=== PATIENT | female | born 1975 | race Caucasian/White ===

== ENCOUNTER 2018-04-13 16:35 | Emergency (ER) | payer OTHER ==
[2018-04-13 16:58] VITALS: BMI 43.3
[2018-04-13] MEDS ORDERED: ONDANSETRON 4 MG/2 ML VIAL IVPUSH ONE (16:59)
[2018-04-13] MEDS ORDERED: SODIUM CHLORIDE 1,000 ML IV STA (16:59)
--- NOTE | 2018-04-13 16:59 | PDOC ---
Rapid Medical Evaluation Medical Evaluation: Allergies Allergy/AdvReac Type Severity Reaction Status Date / Time No Known Allergies Allergy Verified 11/16/15 21:19 04/13/18 16:55 The patient complains of: nausea and unable to tolerate recommended diet since 12 midnight today, s/p gastric sleeve 04/[address] bell at [facility], seen by md yesterday On brief exam: vss, bs + x 4 The patient ordered for: cbc, comp, mag, iv, ivf, zofran The patient to proceed to the ED <Paula Holbrook - Last Filed: 04/13/18 16:55> Medical Evaluation: Allergies Allergy/AdvReac Type Severity Reaction Status Date / Time No Known Allergies Allergy Verified 04/13/18 16:58 Vital Signs Temp Pulse Resp BP Pulse Ox 98.2 F 64 16 148/67 100 04/13/18 16:55 04/13/18 16:55 04/13/18 16:55 04/13/18 16:55 04/13/18 16:55 <Kimberly Garner - Last Filed: 04/13/18 18:16> Time Seen by Provider: 04/13/18 16:55 Discharge Disposition <Paula Holbrook - Last Filed: 04/13/18 16:55> <Kimberly Garner - Last Filed: 04/13/18 18:16> - Diagnosis Nausea - Referrals Referrals: Sahara Cisneros MD [Primary Care Provider] -
--- NOTE | 2018-04-13 17:41 | PDOC ---
History of Present Illness - General Chief Complaint: Nausea Stated Complaint: DEHYDRATION Time Seen by Provider: 04/13/18 16:55 History Source: Patient - History of Present Illness Initial Comments: 04/13/18 18:13 The patient is a 43 year old female with a PMH of recent (April 07, 2018) gastric sleeve who presents with nausea. Patient states she woke up last night and was nauseous and dizzy (room spinning). Notes symptoms continued intermittently through today including today at her work when she felt tired and weak. States she drank some vitamin water "for the electrolytes" and she felt better. Last meal was a boiled egg earlier today. H/o daily multiple episodes of non-bloody watery diarrhea since her surgery. NKDA Surgical: Gastric Sleeve Social: denies toxic habits PMD: Dr. Cisneros Past History - Past Medical History Allergies/Adverse Reactions: Allergies Allergy/AdvReac Type Severity Reaction Status Date / Time No Known Allergies Allergy Verified 04/13/18 16:58 Home Medications: Ambulatory Orders Multivitamins [Tab-A-Vit -] 1 tab PO DAILY 04/13/18 - Immunization History Immunization Up to Date: Yes - Suicide/Smoking/Psychosocial Hx Smoking Status: Yes Smoking History: Never smoked Have you smoked in the past 12 months: No Number of Cigarettes Smoked Daily: 2 Information on smoking cessation initiated: No Hx Alcohol Use: No Drug/Substance Use Hx: No Substance Use Type: None Review of Systems - Review of Systems Constitutional: No: Chills, Fever Respiratory: No: Cough, Shortness of Breath Cardiac (ROS): No: Chest Pain, Lightheadedness, Palpitations, Syncope ABD/GI: Yes: Nausea. No: Constipated, Diarrhea, Vomiting : No: Burning, Dysuria *Physical Exam - Vital Signs Last Vital Signs Temp Pulse Resp BP Pulse Ox 98.2 F 64 16 148/67 100 04/13/18 16:55 04/13/18 16:55 04/13/18 16:55 04/13/18 16:55 04/13/18 16:55 - Physical Exam General Appearance: Yes: Nourished, Obese HEENT: positive: Normal Voice, Hearing Grossly Normal Neck: positive: Trachea midline, Supple Respiratory/Chest: positive: Lungs Clear, Normal Breath Sounds. negative: Labored Respiration, Rapid RR Cardiovascular: positive: S1, S2. negative: Edema Gastrointestinal/Abdominal: positive: Normal Bowel Sounds, Soft, Other ( multiple anterior abdominal surgical scars C/D/I). negative: Distended, Guarding, Rebound, Tenderness Musculoskeletal: negative: CVA Tenderness (R), CVA Tenderness (L) Extremity: positive: Normal Capillary Refill, Normal Inspection Integumentary: positive: Normal Color, Dry, Warm ED Treatment Course - LABORATORY CBC & Chemistry Diagram: 04/13/18 17:59 04/13/18 17:59 Medical Decision Making - Medical Decision Making 04/13/18 18:29 43 year old female presents with nausea and intermittent vertigo. H/o recent gastric bypass. No abdominal pain. VS unremarkable. Abdominal PE w/o concerning findings including no TTP, guarding/rebound, C/D/I surgical scar. Will obtain basic labs, administer IV fluids, Zofran. Reassess. 04/13/18 18:52 No electrolyte abnormalities. Patient symptomatically improved. Will reassess. 04/13/18 19:10 No leukocytosis Urine shows 2+ ketones likely 2/2 to recent limited PO intake 04/13/18 19:15 Re-evaluated patient @ bedside. Symptomatically improved. Will discharge home with return precautions and instruction to f/u with her surgeon and her PMD. *DC/Admit/Observation/Transfer Diagnosis at time of Disposition: Nausea - Discharge Dispostion Disposition: HOME Condition at time of disposition: Good - Referrals Referrals: Sahara Cisneros MD [Primary Care Provider] - - Patient Instructions Printed Discharge Instructions: DI for Dehydration -- Adult Additional Instructions: Please follow up with your surgeon and primary care doctor in the next 48 hours. Return to the Emergency Department for any new/worsening/concerning symptoms. - Post Discharge Activity
[2018-04-13 18:02] LABS: EOS % 3.3 % (0-4.5); HEMATOCRIT 41.8 % (32.4-45.2); HEMOGLOBIN 13.7 GM/dL (10.7-15.3); LYMPH % 26.8 % (8-40); MCH 26.9 pg (25.7-33.7); MCHC 32.9 g/dl (32.0-36.0); MEAN CELL VOLUME 81.9 fl (80-96); MEAN PLT VOLUME 9.3 fl (7.5-11.1); MONO % 6.3 % (3.8-10.2); NEUT % 62.6 % (42.8-82.8); PLATELET COUNT 398 K/MM3 (134-434); RDW 14.6 % (11.6-15.6); WHITE BLOOD COUNT 8.9 K/mm3 (4.0-10.0)
--- NOTE | 2018-04-13 18:04 | PDOC ---
Attending Attestation - Resident Resident Name: Kimberly Garner - ED Attending Attestation I have performed the following: I have examined & evaluated the patient, The case was reviewed & discussed with the resident, I agree w/resident's findings & plan, Exceptions are as noted - HPI HPI: 04/13/18 19:13 Ms Hyde Is a 43-year-old female presented to emergency department with a complaint of nausea as well as diarrhea. She is 7 days status post sleeve gastrectomy. Her last by mouth intake was 9 days ago. Patient states that she has been on liquids up until yesterday when she started taking in solids (upon the approval by her surgeon) disease today she was able to eat eggs. She attempted to eat mashed her lochia, and when it was unable to do so. She developed diarrhea which was consistent. No fevers, no chills. No abdominal pain at all - Physicial Exam PE: 04/13/18 19:15 She is well appearing RRR CTA No abd tenderness or distention - Medical Decision Making 04/13/18 19:15 Laboratory Tests 04/13/18 04/13/18 04/13/18 17:50 17:50 17:59 WBC 8.9 Hgb 13.7 Hct 41.8 Plt Count 398 BUN Creatinine Urine Blood Negative Urine Nitrite Negative Ur Leukocyte Esterase 1+ H Urine WBC (Auto) 5 Urine RBC (Auto) <1 Urine HCG, Qual Negative 04/13/18 17:59 WBC Hgb Hct Plt Count BUN 7 Creatinine 0.4 L Urine Blood Urine Nitrite Ur Leukocyte Esterase Urine WBC (Auto) Urine RBC (Auto) Urine HCG, Qual D/c to home Follow up with surgeon 04/13/18 19:15
[2018-04-13] MEDS ORDERED: ONDANSETRON 4 MG/2 ML VIAL ONE (18:10)
[2018-04-13 18:46] LABS: ALBUMIN 3.6 g/dl (3.4-5.0); ALK PHOS 95 U/L (45-117); ANION GAP 11 MMOL/L (8-16); BILIRUBIN,TOTAL 0.5 mg/dL (0.2-1); BLOOD UREA NITROGEN 7 mg/dL (7-18); CALCIUM 9.5 mg/dL (8.5-10.1); CHLORIDE 103 mmol/L (98-107); CO2 23 mmol/L (21-32); CREATININE 0.4 mg/dL (0.55-1.3); GLUCOSE,RANDOM 81 mg/dL (74-106); LIPASE 150 U/L (73-393); POTASSIUM 3.6 mmol/L (3.5-5.1); SGOT/AST 34 U/L (15-37); SGPT/ALT 59 U/L (13-61); SODIUM 136 mmol/L (136-145); TOT PROT 7.6 g/dl (6.4-8.2)
[2018-04-13 19:00] LABS: URINE APPEARANCE CLEAR; URINE BILIRUBIN NEGATIVE (<2.0 mg/dL); URINE COLOR LTYELLOW; URINE GLUCOSE (UA) NEGATIVE (NEGATIVE); URINE KETONE 2+ (NEGATIVE); URINE LEUK ESTERASE 1+ (NEGATIVE); URINE NITRITE NEGATIVE (NEGATIVE); URINE PROTEIN NEGATIVE (NEGATIVE); URINE UROBILINOGEN NEGATIVE mg/dL (0.2-1.0)
[2018-04-13 19:07] LABS: EPI CELLS RARE /HPF (FEW); URINE MUCUS RARE
[2018-04-13 19:25] VITALS: BP 107/68; PULSE 67; TEMP 97.6
== END 2018-04-13 20:00 | disposition home or self-care (01) ==
LOC: JER 16:35
PROC: 3E033GC Introduction of Other Therapeutic Substance into Peripheral Vein, Percutaneous Approach (ICD-10-PCS; principal; 2018-04-13)
PROC: 3E0337Z Introduction of Electrolytic and Water Balance Substance into Peripheral Vein, Percutaneous Approach (ICD-10-PCS; 2018-04-13)
DX: R11.0 Nausea (principal); Z98.84 Bariatric surgery status
CPT/HCPCS: 36415; 80053; 81003; 81015; 83690; 83735; 84703; 85025; 99284-25; J7030

== ENCOUNTER 2018-04-21 19:39 | Observation (INO) | payer OTHER ==
--- NOTE | 2018-04-21 19:54 | PDOC ---
History of Present Illness - History of Present Illness Initial Comments: 04/21/18 20:49 The patient is a 43 year old female, with a significant past medical history of recent gastric sleeve (04/07/18), who presents to the emergency department with, 9 hours of intermittent left arm numbness with associated left shoulder and back pain. She describes the numbness as a heaviness with associated finger numbness. The patient endorses a headache earlier this morning. She denies any motor and sensory deficits. She denies any extremity tenderness or swelling. She denies recent fevers, chills, headache or dizziness. She denies recent nausea, vomit, diarrhea or constipation. She denies recent dysuria, frequency, urgency or hematuria. She denies recent chest pain or shortness of breath. PAST MEDICAL HISTORY: no significant history PAST SURGICAL HISTORY: no significant history FAMILY HISTORY: no pertinent history SOCIAL HISTORY: Pt lives with family and is employed. MEDICATIONS: reviewed ALLERGIES: As per nursing notes ROS: General: No fevers or chills, no weakness, no weight loss HEENT: No change in vision. No sore throat,. No ear pain CardioVascular: No chest pain or shortness of breath Respiratory:No cough, or wheezing. Gastrointestinal: no nausea, vomiting, diarrhea or constipation, No rectal bleeding Genitourinary: No dysuria, hematuria, or frequency +Musculoskeletal: Shoulder and back pain. No joint or swelling Neurologic: Left arm numbness. No headache, vertigo, dizziness or loss of consciousness Psychiatric: nor depression Skin: No rashes or easy bruising Endocrine: no increased thirst or abnormal weight change Allergic: no skin or latex allergy All other systems reviewed and normal Physical Exam: General: Well-nourished well-developed individual, no acute distress HEENT: Throat: Normal, tonsils normal, no erythema or exudate Neck: Supple, no meningeal signs, no lymphadenopathy Eyes::Pupils equal reactive and round, extraocular motion intact Chest: Nontender to palpation Cardiac: S1-S2 normal, regular rate and rhythm, no murmurs rubs or gallops Respiratory: Lungs clear to auscultation bilateral Abdomen: Soft, nondistended, normal bowel sounds, nontender to palpation diffusely Extremities: Warm, dry, no cyanosis, clubbing, or edema Skin: No rashes +Neuro: See NIH stroke scale. Psych: Normal mood and affect <Aston Darling - Last Filed: 04/21/18 20:49> - General History Source: Patient Exam Limitations: No Limitations - History of Present Illness Initial Comments: 04/21/18 22:04 A portion of this note was documented by scribe services under my direction. I have reviewed the details of the note, within reason, and agree with the documentation. The case summary and management plan written by me. Assessment and plan: This is a 43-year-old female who comes in complaining of left arm weakness and numbness times proximally 9 hours prior to her arrival. Patient denies history of similar symptoms in the past. Patient said symptoms began to resolve but then again worsened so she came in for evaluation. Patient's only significant history is obesity and recently had a gastric sleeve procedure done approximately 2 weeks ago. Patient has a family history of cardiac disease however denies any history of hypertension high cholesterol diabetes or any other risk factors. Patient denied any chest pain.. A workup was obtained including head CT, EKG, labs Patient's NIH stroke scale was 1 for some decreased sensation. 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 Patient's EKG was normal sinus rhythm at a rate of 69, normal intervals, no acute ST-T wave changes Patient's head CT was negative for any acute pathology <Celina Pemberton I - Last Filed: 04/21/18 23:53> - General Chief Complaint: Head/Neck problem Stated Complaint: NUMBNESS LT ARM Time Seen by Provider: 04/21/18 19:54 Past History <Aston Darling - Last Filed: 04/21/18 20:49> - Past Medical History COPD: No - Surgical History GI Surgery: Yes (Gastric sleeve) - Immunization History Immunization Up to Date: Yes - Suicide/Smoking/Psychosocial Hx Smoking Status: Yes Smoking History: Former smoker Have you smoked in the past 12 months: Yes Number of Cigarettes Smoked Daily: 2 If you are a former smoker, when did you quit?: JANUARY Information on smoking cessation initiated: No Hx Alcohol Use: No Drug/Substance Use Hx: No Substance Use Type: None <Celina Pemberton I - Last Filed: 04/21/18 23:53> - Past Medical History Allergies/Adverse Reactions: Allergies Allergy/AdvReac Type Severity Reaction Status Date / Time No Known Allergies Allergy Verified 04/13/18 16:58 Home Medications: Ambulatory Orders Multivitamins [Tab-A-Vit -] 1 tab PO DAILY 04/13/18 *Physical Exam - Vital Signs Last Vital Signs Temp Pulse Resp BP Pulse Ox 98.1 F 74 16 113/71 100 04/21/18 19:41 04/21/18 19:41 04/21/18 19:41 04/21/18 19:41 04/21/18 19:41 <Aston Darling - Last Filed: 04/21/18 20:49> - Vital Signs Last Vital Signs Temp Pulse Resp BP Pulse Ox 98.1 F 74 16 113/71 100 04/21/18 19:41 04/21/18 19:41 04/21/18 19:41 04/21/18 19:41 04/21/18 19:41 <Celina Pemberton I - Last Filed: 04/21/18 23:53> Heart Score/ECG Review - History History: Slightly suspicious - Electrocardiogram EKG: Normal - Age Age: </= 45 - Risk Factors Risk Factors Heart Score: Yes Hx Obesity Based on the list above the patient has:: 1-2 risk factors - Troponin Troponin: </= normal limit - Score Heart Score - Total: 1 <Celina Pemberton I - Last Filed: 04/21/18 23:53> ED Treatment Course - LABORATORY CBC & Chemistry Diagram: 04/21/18 21:00 04/21/18 21:00 <Celina Pemberton I - Last Filed: 04/21/18 23:53> *DC/Admit/Observation/Transfer - Attestations Scribe Attestion: 04/21/18 20:49 Documentation prepared by Aston Darling, acting as medical education coordinator for Celina Pemberton MD. <Aston Darling - Last Filed: 04/21/18 20:49> - Discharge Dispostion Decision to Admit order: Yes <Celina Pemberton I - Last Filed: 04/21/18 23:53> Diagnosis at time of Disposition: TIA (transient ischemic attack) - Discharge Dispostion Condition at time of disposition: Stable - Referrals Referrals: Sahara Cisneros MD [Primary Care Provider] - - Patient Instructions - Post Discharge Activity
[2018-04-21] MEDS: SODIUM CHLORIDE 1,000 ML IV SCH (21:10)
[2018-04-21 21:11] LABS: HCG,QUALITATIVE URINE Negative
[2018-04-21 21:14] LABS: PH,URINE 6.5 (4.5-8); URINE APPEARANCE Clear; URINE BILIRUBIN 2+ (NEGATIVE); URINE COLOR Yellow; URINE GLUCOSE (UA) Negative (NEGATIVE); URINE KETONE 4+ (NEGATIVE); URINE LEUK ESTERASE TRACE (NEGATIVE); URINE NITRITE Negative (NEGATIVE); URINE PROTEIN 1+ (NEGATIVE)
[2018-04-21 21:16] LABS: EOS % 4.7 % (0-4.5); HEMATOCRIT 42.1 % (32.4-45.2); HEMOGLOBIN 13.9 GM/dl (10.7-15.3); LYMPH % 33.2 % (8-40); MCH 27.4 pg (25.7-33.7); MCHC 33.1 g/dl (32.0-36.0); MEAN CELL VOLUME 82.7 fl (80-96); MEAN PLT VOLUME 9.6 fl (7.5-11.1); MONO % 7.4 % (3.8-10.2); NEUT % 53.7 % (42.8-82.8); PLATELET COUNT 410 K/MM3 (134-434); RBC 5.09 M/mm3 (3.60-5.2); WHITE BLOOD COUNT 8.3 K/mm3 (4.0-10.8)
[2018-04-21 21:20] LABS: URINE RBC 0-2 /hpf (0-3)
[2018-04-21 21:21] LABS: CALCIUM OXALATE CRYSTALS FEW /hpf (NONE SEEN); EPI CELLS FEW /HPF; URINE BACTERIA 2+ /hpf (NEGATIVE)
[2018-04-21 21:25] LABS: ALBUMIN 3.7 g/dl (3.5-5.0); ALK PHOS 87 U/L (32-92); ANION GAP 11 MMOL/L (8-16); BILIRUBIN,TOTAL 0.8 mg/dl (0.2-1.0); BLOOD UREA NITROGEN 9 mg/dl (7-18); CHLORIDE 100 mmol/L (98-107); CO2 27 mmol/L (22-28); GLUCOSE,RANDOM 99 mg/dl (74-106); POTASSIUM 3.5 mmol/L (3.5-5.1); SGOT/AST 31 U/L (10-42); SGPT/ALT 50 U/L (10-40); SODIUM 138 mmol/L (136-145)
[2018-04-21 21:26] LABS: CREATININE < 0.6 mg/dl (0.6-1.3)
--- NOTE | 2018-04-21 21:27 | PDOC ---
NIH Stroke Scale - Last Known Well Date/Time & Onset Date Last Known Well: 04/21/18 Time Last Known Well: 12:00 - Initial Evaluation Level of consciousness: Alert Ask patient the month and their age: Answers both correctly Ask patient to open & close eyes; make fist and let go: Obeys both correctly Best gaze (horizontal eye movement): Normal Visual field testing: No visual field loss Facial paresis (Show teeth/raise eyebrows/close eyes tight): Normal symmetrical movement Motor Function: Left Arm: Normal Motor Function: Right Arm: Normal (extends arm 90 (or 45) degrees for 10 seconds without drift Motor Function: Left Leg: Normal (extends leg 30 degrees for 5 seconds without drift) Motor Function: Right Leg: Normal (extends leg 30 degrees for 5 seconds without drift) Limb Ataxia: No ataxia Sensory(Use pinprick test arms,legs,trunk,face/side to side): Mild to moderate decrease in sensation Best language (Describe picture, name items, read sentences): No Aphasia Dysarthria (read several words): Normal articulation Extinction and Inattention: No abnormality - Total Score NIH Stroke Scale Score: 1
[2018-04-21] MEDS ORDERED: NITROFURANTOIN MACROCRYSTAL 50 MG CAPSULE (FP) PO SCH (22:15)
[2018-04-21] MEDS ORDERED: NITROFURANTOIN MACROCRYSTAL 50 MG CAPSULE (FP) ONE (22:23)
[2018-04-22 03:38] VITALS: BMI 43.0
--- NOTE | 2018-04-22 06:20 | PN ---
Teaching Attending Note Name of Resident: Leticia Johnson ATTENDING PHYSICIAN STATEMENT I saw and evaluated the patient. Chart, data, imaging reviewed. I reviewed the resident's note and discussed the case with the resident. I agree with the resident's findings and plan as documented. SUBJECTIVE: 43 year old female transferred to [facility] from [facility], with a significant past medical history of recent gastric sleeve (04/07/18), Sjogren's syndrome who complained of intermittent left upper extremity numbness x1 day. She also mentioned that numbness was located in b/l fingers while in ambulance. No clear causative factors. Denied any trauma to arm. Denied any pain. No other weakness or numbness reported. OBJECTIVE: Last Vital Signs Temp Pulse Resp BP Pulse Ox 97.6 F 65 20 115/74 98 04/22/18 02:00 04/22/18 02:00 04/22/18 02:00 04/22/18 02:00 04/22/18 02:00 general- comfortable, obese heent- atraumatic, NC neck supple cv -s1+s2+rrr chest clear abdomen -obese, nt ext- good hand lead consultant b/l, upper ext sensation grossly intact Abnormal Lab Results 04/21/18 04/21/18 04/21/18 21:00 21:00 21:00 Eosinophils % 4.7 H Creatinine < 0.6 L ALT 50 H Urine Protein 1+ H Urine Ketones 4+ H Urine Bilirubin 2+ H Ur Leukocyte Esterase Trace H head CT - no acute intracranial insults ASSESSMENT AND PLAN: 43yo woman with LUE numbness, b/l finger numbness. Could be TIA. May also be Raynauld phenomenon, especially given Hx of baseline autoimmune disorders. -tele/obs -neuro evaluation -ASA -statin -NPO -TTE -carotid duplex u/s -speech and swallow eval -neuro checks q4hrs -bedrest -check mg, supplement prn -supplement K (was borderline low) -if recurrent distal finger numbness, consider trial of CCB -heparin sc for dvt ppx
[2018-04-22] MEDS ORDERED: ATORVASTATIN CA 40 MG TABLET (FP) PO ONE (06:45)
[2018-04-22] MEDS ORDERED: ASPIRIN 325 MG TABLET PO ONE (06:45)
[2018-04-22] MEDS ORDERED: POTASSIUM CHLORIDE TABS 20 MEQ TABLET.ER (FP) PO ONE (06:45)
[2018-04-22] MEDS: HEPARIN NA (PORCINE) 5,000 UNITS/ML 1ML VIAL SQ SCH ×3 (06:55→21:34)
[2018-04-22 07:10] LABS: BASO % 0.7 % (0-2.0); EOS % 5.2 % (0-4.5); HEMOGLOBIN 12.5 GM/dL (10.7-15.3); LYMPH % 33.9 % (8-40); MCH 26.7 pg (25.7-33.7); MCHC 32.9 g/dl (32.0-36.0); MEAN CELL VOLUME 81.3 fl (80-96); MEAN PLT VOLUME 8.9 fl (7.5-11.1); MONO % 8.4 % (3.8-10.2); NEUT % 51.8 % (42.8-82.8); PLATELET COUNT 323 K/MM3 (134-434); RBC 4.68 M/mm3 (3.60-5.2); RDW 14.9 % (11.6-15.6); WHITE BLOOD COUNT 6.7 K/mm3 (4.0-10.0)
[2018-04-22 07:26] LABS: INR 1.08 (0.83-1.09); PROTHROMBIN TIME (PATIENT) 12.8 SEC (9.7-13.0)
[2018-04-22 07:29] LABS: ACTIVATED PTT 33.3 SECONDS (25.2-36.5)
[2018-04-22 07:54] LABS: ANION GAP 8 MMOL/L (8-16); BLOOD UREA NITROGEN 8 mg/dL (7-18); CALCIUM 8.6 mg/dL (8.5-10.1); CHLORIDE 103 mmol/L (98-107); CHOLESTEROL 181 mg/dL (50-200); CO2 29 mmol/L (21-32); CREATININE 0.4 mg/dL (0.55-1.3); GLUCOSE,RANDOM 94 mg/dL (74-106); HDL CHOLESTEROL 38 mg/dL (40-60); MAGNESIUM 2.2 mg/dL (1.8-2.4); PHOSPHOROUS 3.5 mg/dL (2.5-4.9); POTASSIUM 3.6 mmol/L (3.5-5.1); SODIUM 140 mmol/L (136-145); TRIGLYCERIDES 147 mg/dL (0-150)
--- NOTE | 2018-04-22 08:11 | HP ---
CHIEF COMPLAINT: Left arm numbness, weakness PCP: Dr Cisneros HISTORY OF PRESENT ILLNESS: Pt is a 43 y/o lady with a significant past medical history of Sjogrem's disease presented to [facility] c/o numbness, tingling, and cramping like pain in her left upper extremity which commenced around noon yesterday (). 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 PT states her entire left arm became numb and weak. These symptoms commenced until approximately 2:45 pm. Pt states her symtms returned again at 6 pm and this is when she decided to seek medical help. Pt further endorses that while she was in ambulance en route to [facility] from [place], her right arm began to cramp and turn blue. Pt states this has never happened to her before. Denies chest pain, shortness of breath, lightheadedness, nausea, vomiting, changes in vision, LOC, or facial droop. ER course was notable for: (1) CT Head w/o contrast--> No acute intracranial pathology (2) EKG--> No ST-T wave changes, NL sinus rhythm rate of 69, (3) Troponin <0.03 Recent Travel: denies PAST MEDICAL HISTORY: Sjogren's PAST SURGICAL HISTORY: Gastric Sleeve, Tubal Ligation Social History: Smoking: Quit January 03 2018. Use to smoke 3 cigarettes Marifer per day. Alcohol: denies Drugs: occasional marijuana Family History: Dad-Stroke, [place]. Mom- CAD, Stents Allergies NKDA No Known Allergies Allergy (Verified 04/13/18 16:58) HOME MEDICATIONS: Home Medications Medication Instructions Recorded Multivitamins [Tab-A-Vit -] 1 tab PO DAILY 04/13/18 REVIEW OF SYSTEMS CONSTITUTIONAL: PRESENT:: , generalized weakness, malaise HEENT: Absent: rhinorrhea, nasal congestion, throat pain, throat swelling, difficulty swallowing, mouth swelling, ear pain, eye pain, visual changes CARDIOVASCULAR: Absent: chest pain, syncope, palpitations, irregular heart rate, lightheadedness , peripheral edema RESPIRATORY: Absent: cough, shortness of breath, dyspnea with exertion, orthopnea, wheezing, stridor, hemoptysis GASTROINTESTINAL: Absent: abdominal pain, abdominal distension, nausea, vomiting, diarrhea, constipation, melena, hematochezia GENITOURINARY: Absent: dysuria, frequency, urgency, hesitancy, hematuria, flank pain, genital pain MUSCULOSKELETAL: Absent: myalgia, arthralgia, joint swelling, back pain, neck pain SKIN: Absent: rash, itching, pallor HEMATOLOGIC/IMMUNOLOGIC: Absent: easy bleeding, easy bruising, lymphadenopathy, frequent infections ENDOCRINE: Absent: unexplained weight gain, unexplained weight loss, heat intolerance, cold intolerance NEUROLOGIC: PRESENT: headache, focal weakness or paresthesias, PSYCHIATRIC: Absent: anxiety, depression, suicidal or homicidal ideation, hallucinations. PHYSICAL EXAMINATION Vital Signs - 24 hr 04/21/18 04/22/18 04/22/18 19:41 02:00 06:00 Temperature 98.1 F 97.6 F 97.9 F Pulse Rate 74 65 54 L Respiratory 16 20 20 Rate Blood Pressure 113/71 115/74 104/67 O2 Sat by Pulse 100 98 Oximetry (%) GENERAL: AaoX3, NAD HEAD: NC/AT EYES: PERRLA, EOMI EARS, NOSE, THROAT: MMM, NO EXUDATES NECK: Supple, No JVD LUNGS: CTA B/L, No rales rhonchi or wheezes HEART: RRR, No MRG S1 S2 ABDOMEN: Obese. Laparoscopy incisions present s/p sleeve gastrectomy MUSCULOSKELETAL: FROM throughout UPPER EXTREMITIES: No CCE LOWER EXTREMITIES: No CCE NEUROLOGICAL: CN -12 intact SKIN: No rashes Laboratory Results - last 24 hr 04/21/18 04/21/18 04/21/18 21:00 21:00 21:00 WBC 8.3 RBC 5.09 Hgb 13.9 Hct 42.1 MCV 82.7 MCH 27.4 MCHC 33.1 RDW 14.0 Plt Count 410 MPV 9.6 Absolute Neuts (auto) 4.4 Neutrophils % 53.7 Lymphocytes % 33.2 Monocytes % 7.4 Eosinophils % 4.7 H Basophils % 1.0 Nucleated RBC % PT with INR INR PTT (Actin FS) Sodium 138 Potassium 3.5 Chloride 100 Carbon Dioxide 27 Anion Gap 11 BUN 9 Creatinine < 0.6 L Creat Clearance w eGFR > 60 Random Glucose 99 Calcium 9.0 Phosphorus Magnesium Total Bilirubin 0.8 AST 31 ALT 50 H Alkaline Phosphatase 87 Creatine Kinase Troponin I Total Protein 7.0 Albumin 3.7 Triglycerides Cholesterol Total LDL Cholesterol HDL Cholesterol Urine Color Yellow Urine Appearance Clear Urine pH 6.5 Ur Specific [place] >= 1.030 Urine Protein 1+ H Urine Glucose (UA) Negative Urine Ketones 4+ H Urine Blood Negative Urine Nitrite Negative Urine Bilirubin 2+ H Urine Urobilinogen 1.0 Ur Leukocyte Esterase Trace H Urine RBC 0-2 Urine WBC 5-10 Ur Epithelial Cells Few Calcium Oxalate Crystal Few Urine Bacteria 2+ Urine HCG, Qual Negative 04/21/18 04/21/18 04/22/18 21:00 21:00 06:48 WBC 6.7 RBC 4.68 Hgb 12.5 Hct 38.0 MCV 81.3 MCH 26.7 MCHC 32.9 RDW 14.9 Plt Count 323 MPV 8.9 Absolute Neuts (auto) 3.5 Neutrophils % 51.8 Lymphocytes % 33.9 D Monocytes % 8.4 Eosinophils % 5.2 H Basophils % 0.7 Nucleated RBC % 0 PT with INR INR PTT (Actin FS) Sodium Potassium Chloride Carbon Dioxide Anion Gap BUN Creatinine Creat Clearance w eGFR Random Glucose Calcium Phosphorus Magnesium Total Bilirubin AST ALT Alkaline Phosphatase Creatine Kinase 82 Troponin I < 0.03 Total Protein Albumin Triglycerides Cholesterol Total LDL Cholesterol HDL Cholesterol Urine Color Urine Appearance Urine pH Ur Specific [place] Urine Protein Urine Glucose (UA) Urine Ketones Urine Blood Urine Nitrite Urine Bilirubin Urine Urobilinogen Ur Leukocyte Esterase Urine RBC Urine WBC Ur Epithelial Cells Calcium Oxalate Crystal Urine Bacteria Urine HCG, Qual 04/22/18 04/22/18 04/22/18 06:48 06:48 06:48 WBC RBC Hgb Hct MCV MCH MCHC RDW Plt Count MPV Absolute Neuts (auto) Neutrophils % Lymphocytes % Monocytes % Eosinophils % Basophils % Nucleated RBC % PT with INR 12.80 INR 1.08 PTT (Actin FS) 33.3 Sodium 140 Potassium 3.6 Chloride 103 Carbon Dioxide 29 Anion Gap 8 BUN 8 Creatinine 0.4 L Creat Clearance w eGFR > 60 Random Glucose 94 Calcium 8.6 Phosphorus 3.5 Magnesium 2.2 Total Bilirubin AST ALT Alkaline Phosphatase Creatine Kinase Troponin I Total Protein Albumin Triglycerides 147 Cancelled Cholesterol 181 Cancelled Total LDL Cholesterol 123 H Cancelled HDL Cholesterol 38 L Cancelled Urine Color Urine Appearance Urine pH Ur Specific [place] Urine Protein Urine Glucose (UA) Urine Ketones Urine Blood Urine Nitrite Urine Bilirubin Urine Urobilinogen Ur Leukocyte Esterase Urine RBC Urine WBC Ur Epithelial Cells Calcium Oxalate Crystal Urine Bacteria Urine HCG, Qual ASSESSMENT/PLAN: Pt is a 43 y/o lady with a significant past medical history of Sjogrem's disease presented to [facility] c/o numbness, tingling, and cramping like pain in her left upper extremity which commenced around noon yesterday (). Numbness/weakness Upper Extremity 2/2 TIA? - CT Head w/o contrast--> No acute intracranial pathology -Carotid Doppler -Lipid Panel -Neuro checks Q2H -Statin -Aspirin -Fall Precautions -Tylenol PRN for pain -Neuro consult FEN NS@150cc/hr Monitor Electrolytes NPO DVT ppx: Hep SQ TID Dispo: Tele Obs Visit type - Emergency Visit Emergency Visit: Yes ED Registration Date: 04/22/18 Care time: The patient presented to the Emergency Department on the above date and was hospitalized for further evaluation of their emergent condition. - New Patient This patient is new to me today: Yes Date on this admission: 04/22/18 - Critical Care Critical Care patient: No
--- NOTE | 2018-04-22 09:13 | EKG ---
Test Reason : Blood Pressure : / mmHG Vent. Rate : 069 BPM Atrial Rate : 069 BPM P-R Int : 136 ms QRS Dur : 080 ms QT Int : 394 ms P-R-T Axes : 064 013 014 degrees QTc Int : 422 ms NORMAL SINUS RHYTHM NORMAL ECG WHEN COMPARED WITH ECG OF 09-MAR-2008 09:35, NO SIGNIFICANT CHANGE WAS FOUND Confirmed by VIV RICE MD ([id number]) on 04/22/2018 9:13:39 AM Referred By: MARI Confirmed By:VIV RICE MD
--- NOTE | 2018-04-22 15:31 | CON.NEURO ---
Consult Consult Specialty:: Crow Referred by:: Hospital Resident - History of Present Illness History of Present Illness: 43-year-old right-handed female patient well known to me from the office I treated the patient for years with migraine headache Patient presented to the hospital 2 days ago with a chief complaint of left arm spasm. Patient denies any loss of consciousness no seizure-like activity patient was evaluated in the emergency room and she felt the spread of her symptoms so the patient was transferred to [facility] in the ambulance patient had shaking of the right arm. Again patient denies any chest pain palpitations blurry vision double vision tongue biting and urinary incontinence. Patient never had a history of seizure. Patient carries only one history of mild obesity and history of Sjogren's syndrome she's not on any immune modulation she's not on steroids patient was never been treated by a haul truck driver. Patient denies any recent travel patient claims that the headache is better. 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 Patient admits to weight gain recently. No recent travel no fever no whiplash injury. - History Source History Provided By: Patient Limitations to Obtaining History: No Limitations - Past Medical History ...: No - Alcohol/Substance Use Hx Alcohol Use: No - Smoking History Smoking history: Former smoker Have you smoked in the past 12 months: Yes Aproximately how many cigarettes per day: 1 If you are a former smoker, when did you quit?: 01/2018 Home Medications - Allergies Allergies/Adverse Reactions: Allergies Allergy/AdvReac Type Severity Reaction Status Date / Time No Known Allergies Allergy Verified 04/13/18 16:58 - Home Medications Home Medications: Ambulatory Orders Multivitamins [Tab-A-Vit -] 1 tab PO DAILY 04/13/18 Family Disease History - Family Disease History Family Disease History: Other: Sister (seizure) Review of Systems - Review of Systems Musculoskeletal: reports: Back Pain, Joint Swelling Neurological: reports: Headache, Incoordination Physical Exam-Neuro Vital Signs: Vital Signs Temperature 97.7 F 04/22/18 14:02 Pulse Rate 68 04/22/18 14:02 Respiratory Rate 16 04/22/18 14:02 Blood Pressure 137/76 04/22/18 14:02 O2 Sat by Pulse Oximetry (%) 98 04/22/18 02:00 Constitutional: Yes: Well Nourished Neck: Yes: WNL Labs: CBC, BMP 04/22/18 06:48 04/22/18 06:48 INR, PTT INR 1.08 (0.83-1.09) 04/22/18 06:48 - Neuro Exam Level Of Consciousness: Yes: Oriented to Person, Oriented to Place, Oriented to Time Eyes: Yes: PERRLA Speech: WNL Dominant Hand: Right Cranial Nerves II-XII Intact: Yes Gag: Present DTR's: 1+ Left Bicep, 1+ Right Bicep, 1+ Left Brachioradialis, 1+ Right Brachioradialis Response to light touch: Normal Response to pain prick: Normal Response to temperature: Normal Response to vibration: Normal Motor Strength: 3/5: Left Arm, Right Arm, Left Leg, Right Leg Gait: Deferred Imaging - Results Cat Scan: Image Reviewed Problem List - Problems (1) Arm dysfunction Assessment/Plan: this is not a TIA This is not an ischemic event Results of the CAT scan noted questionable prior trauma to the head that resulted in calcification this is not the reason for the arm symptoms Please do not order MRI of the brain as an inpatient. Neurologically patient stable Neurological differential diagnoses #1 cervical radiculopathy C6-C7 #2 Sjogren syndrome #3 myalgia #4 mild obesity Plan #1 weight loss was advised. 2. Neurontin 100 mg by mouth daily at bedtime. 3. Obtain the results of the Holter monitor. 4. Patient neurologically could be transferred to a regular floor. 4. Suggest rheumatology evaluation as an outpatient. 5. MRI cervical spine with no contrast. 6. Physical therapy. 7. Obtain deep mercury and iron level. Case was discussed with the patient Thank you very much for the kind referral. Code(s): R29.898 - [facility] SYMPTOMS AND SIGNS INVOLVING THE MUSCULOSKELETAL SYSTEM
[2018-04-22] MEDS: ACETAMINOPHEN 325 MG TABLET (FP) PO PRN (19:53)
[2018-04-22] MEDS: SODIUM CHLORIDE 1,000 ML IV SCH (21:38)
[2018-04-23] MEDS: SODIUM CHLORIDE 1,000 ML IV SCH (05:00)
[2018-04-23] MEDS: HEPARIN NA (PORCINE) 5,000 UNITS/ML 1ML VIAL SQ SCH ×4 (06:34→21:21)
--- NOTE | 2018-04-23 08:57 | PN ---
Progress Note (short form) - Note Progress Note: H+P and events noted. no complaints this am had episode of headache yesterday evening with 160/90 resolved with tylenol HR low 50s overnight spasm resolved, but feels like her left arm is still heavy never had any pain in arm or neck, just spasm and heaviness CBC, BMP 04/22/18 06:48 04/22/18 06:48 Vital Signs Period Temp Pulse Resp BP Sys/Garcia Pulse Ox Last 24 Hr 97.1 F-982 F 56-80 16-20 110-160/51-92 98 S1S2 rrr lungs cta no edema aa0x3, motor strength 5/5 in both upper extremities no sensory deficit ambulatory to bathroom 43 you F obesity recent gastric sleeve 2 weeks ago-uneventful possible h/o sjogren's ds. cervical radiculopathy more remote h/o chronic headaches-resolved after topamax treatment, non recently neurology consultation appreciated awaiting mri c spine episode of htn, with no prior history run of vtach vs artifact on telemetry-pt was asymptomatic at the time will request cardiac eval dc iv fluids, eating drinking well
[2018-04-23] MEDS: GABAPENTIN 100 MG CAPSULE (FP) PO SCH (09:03)
[2018-04-23] MEDS: ACETAMINOPHEN 325 MG TABLET (FP) PO PRN (10:07)
--- NOTE | 2018-04-23 12:50 | CON.CARD ---
Consult Consult Specialty:: Cardiology Referred by:: Hospitalist Reason for Consultation:: Cardiac evaluation - History of Present Illness Chief Complaint: Left hand numbness History of Present Illness: Patient is a 43 year old female with underlying history of recent gastric sleeve (04/07/18) at [facility] with no significant PMD except for migraines who presents with left had numbness and left arm and shoulder discomfort. She describes heaviness and difficulty with movement of her fingers. She also complained of headache. She denies chest pain, SOB or palpitations. She denies paroxysmal nocturnal dyspnea or orthopnea. She denies fever or chills. She denies nausea, vomiting, diarrhea or abdominal pain. Denies syncopal episode. 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 ...: No - Past Surgical History Past Surgical History: Yes: Tubal Ligation Additional Surgical History: Gastric sleeve - Alcohol/Substance Use Hx Alcohol Use: Yes (social) - Smoking History Smoking history: Former smoker Have you smoked in the past 12 months: Yes Aproximately how many cigarettes per day: 1 If you are a former smoker, when did you quit?: 01/2018 Home Medications - Allergies Allergies/Adverse Reactions: Allergies Allergy/AdvReac Type Severity Reaction Status Date / Time No Known Allergies Allergy Verified 04/13/18 16:58 - Home Medications Home Medications: Ambulatory Orders Multivitamins [Tab-A-Vit -] 1 tab PO DAILY 04/13/18 Family Disease History - Family Disease History Family Disease History: Other: Father (CVA), Sister (seizure) Review of Systems - Review of Systems Constitutional: denies: Chills, Fever Cardiovascular: denies: Chest Pain, Palpitations, Shortness of Breath Respiratory: denies: Cough, Hemoptysis, Orthopnea, PND, SOB, SOB on Exertion Gastrointestinal: denies: Abdominal Pain, Constipation, Diarrhea, Melena, Nausea , Rectal Bleeding, Vomiting Genitourinary: denies: Dysuria, Hematuria Musculoskeletal: denies: Back Pain, Joint Pain Neurological: reports: Headache. denies: Dizziness, Seizure, Syncope Vital Signs: Vital Signs Temperature 97.9 F 04/23/18 10:00 Pulse Rate 78 04/23/18 10:00 Respiratory Rate 18 04/23/18 10:00 Blood Pressure 108/63 04/23/18 10:00 O2 Sat by Pulse Oximetry (%) 97 04/23/18 09:04 Constitutional: Yes: Well Nourished Eyes: Yes: PERRL HENT: Yes: Atraumatic Neck: Yes: Supple Respiratory: Yes: CTA Bilaterally Gastrointestinal: Yes: Normal Bowel Sounds, Soft. No: Tenderness Cardiovascular: Yes: Regular Rate and Rhythm JVD: No Carotid Bruit: No PMI: Non-Displaced Heart Sounds: Yes: S1, S2. No: Gallop Murmur: No: Systolic Murmur, Diastolic Murmur Edema: No - Other Data Labs, Other Data: CBC, BMP 04/22/18 06:48 04/22/18 06:48 INR, PTT INR 1.08 (0.83-1.09) 04/22/18 06:48 Normal sinus rhythm Imaging - Results Chest X-ray: Report Reviewed Cat Scan: Report Reviewed (Head CT unremarkable) Ultrasound: Report Reviewed (Carotid US) EKG: Report Reviewed Problem List - Problems (1) Hand numbness Code(s): R20.0 - ANESTHESIA OF SKIN (2) Migraines Code(s): G43.909 - MIGRAINE, UNSP, NOT INTRACTABLE, WITHOUT STATUS MIGRAINOSUS (3) Gastric bypass status for obesity Code(s): Z98.84 - BARIATRIC SURGERY STATUS Assessment/Plan 1. ? Cervical radiculopathy, doubt TIA 2. History of migraines 3. Exogenous obesity s/p gastric sleeve PLAN: 1. No arrhythmias are seen on the monitor except for artifacts. 2. Neuro input noted 3. No need for cardiac therapy at this time 4. Consider echocardiography Mon if still in the hospital to assess LV/RV and valvular function 5. Post op care for gastric sleeve Further plans are to follow Ortega Banks MD
[2018-04-24] MEDS: ACETAMINOPHEN 325 MG TABLET (FP) PO PRN (05:38)
[2018-04-24] MEDS: HEPARIN NA (PORCINE) 5,000 UNITS/ML 1ML VIAL SQ SCH (05:40)
[2018-04-24 08:13] VITALS: BP 104/68; PULSE 62; TEMP 97.4
[2018-04-24] MEDS: GABAPENTIN 100 MG CAPSULE (FP) PO SCH (09:11)
--- NOTE | 2018-04-24 10:08 | DS ---
Physical Examination Vital Signs: Vital Signs Temperature 97.4 F L 04/24/18 08:12 Pulse Rate 62 04/24/18 08:12 Respiratory Rate 18 04/24/18 08:12 Blood Pressure 104/68 04/24/18 08:12 O2 Sat by Pulse Oximetry (%) 98 04/24/18 08:52 Constitutional: Yes: No Distress, Calm, Obese Eyes: Yes: EOM Intact HENT: Yes: Normocephalic Neck: Yes: Trachea Midline Cardiovascular: Yes: Regular Rate and Rhythm Respiratory: Yes: CTA Bilaterally Gastrointestinal: Yes: Normal Bowel Sounds, Soft Musculoskeletal: Yes: WNL Extremities: Yes: WNL Neurological: Yes: WNL Psychiatric: Yes: WNL Labs: CBC, BMP 04/22/18 06:48 04/22/18 06:48 Discharge Summary Reason For Visit: TIA Current Active Problems Arm dysfunction (Acute) Gastric bypass status for obesity (Acute) Hand numbness (Acute) Migraines (Acute) TIA (transient ischemic attack) (Acute) Hospital Course: admitted for hand cramps, weakness, mostly left side but at time right w/up including head ct-no acute abnormality, mri c spine-arthritis, no cord compression or HNP, carotid US-unremarkable and telemetry monitoring- unremarkable completed neurology/cardiology consultation done,appreciated no further events noted follow up as outpt for further evaluation as needed Condition: Stable - Instructions Diet, Activity, Other Instructions: follow up with dr moore next week Referrals: Sahara Moore MD [Primary Care Provider] - Disposition: HOME - Home Medications Comprehensive Discharge Medication List: Ambulatory Orders Multivitamins [Multivit ([facility] Formulary)] 1 tab PO DAILY 04/13/18 Gabapentin [Neurontin -] 100 mg PO DAILY #30 capsule 04/24/18
== END 2018-04-24 11:57 | disposition home or self-care (01) ==
LOC: FER 19:39 → J4S 04-22 01:30 → INTOOBSV 04-22 02:00 → UNDOADMOB 04-22 02:00 → J4S 04-22 06:33
PROVIDERS: ADMIT Internal Medicine; ATTEND Internal Medicine
PROC: 3E0337Z Introduction of Electrolytic and Water Balance Substance into Peripheral Vein, Percutaneous Approach (ICD-10-PCS; principal; 2018-04-22)
PROC: 3E013GC Introduction of Other Therapeutic Substance into Subcutaneous Tissue, Percutaneous Approach (ICD-10-PCS; 2018-04-22)
DX: R20.0 Anesthesia of skin (principal); G43.909 Migraine, unspecified, not intractable, without status migrainosus; E66.9 Obesity, unspecified; Z68.41 Body mass index [BMI] 40.0-44.9, adult; Z98.84 Bariatric surgery status; Z87.891 Personal history of nicotine dependence; R29.898 Other symptoms and signs involving the musculoskeletal system
CPT/HCPCS: 36415; 70450-TC; 71045-TC-FY; 72141-TC; 80048; 80053; 80061; 81003; 81015; 82550; 83090; 83721; 83735; 84100; 84155; 84165; 84443; 84484; 84703; 85025; 85303; 85306; 85610; 85651; 85730; 86038; 87086; 93005; 93880-TC; 99282-25; G0378; J1644; J7030

== ENCOUNTER 2018-06-13 18:19 | Emergency (ER) | payer OTHER ==
[2018-06-13 18:29] VITALS: BP 127/70; PULSE 56; TEMP 98; BMI 38.7
[2018-06-13] MEDS ORDERED: ASPIRIN 81 MG CHEWABLE TABLETS PO ONE (19:07)
[2018-06-13] MEDS ORDERED: ASPIRIN 81 MG CHEWABLE TABLETS ONE (19:09)
--- NOTE | 2018-06-13 19:22 | PDOC ---
History of Present Illness - General Chief Complaint: Chest Pain Stated Complaint: CHEST PAIN Time Seen by Provider: 06/13/18 18:45 - History of Present Illness Initial Comments: The patient is a 43F w/ a history of TIA and gastric sleeve (04/2018) who presents for evaluation of chest pain that started at 1530 today. The describes the pain as a left sided chest pressure that is intermittent, non-exertional, pressure-like, radiates to her back and to her left arm, and is not exacerbated or alleviated by anything that she can identify. She states that she as at her desk when the pain started. She has not had this kind of pain before and did not try taking anything for the pain. Denies recent illness, fevers/chills, [place], vision changes, current chest pain; Denies SOB, abdominal pain, N/V/C/D. Endorses continued L arm tingling She reports a history of TIA in the past, but denies any issues since that time or any pertinent findings on that admission. PCP: Dr. Cisneros 06/13/18 19:12 NIH Stroke Scale - Last Known Well Date/Time & Onset Date Last Known Well: 06/13/18 Time Last Known Well: 16:00 (resolved on presentation) - Initial Evaluation Level of consciousness: Alert Ask patient the month and their age: Answers both correctly Ask patient to open & close eyes; make fist and let go: Obeys both correctly Best gaze (horizontal eye movement): Normal Visual field testing: No visual field loss Facial paresis (Show teeth/raise eyebrows/close eyes tight): Normal symmetrical movement Motor Function: Left Arm: Normal Motor Function: Right Arm: Normal (extends arm 90 (or 45) degrees for 10 seconds without drift Motor Function: Left Leg: Normal (extends leg 30 degrees for 5 seconds without drift) Motor Function: Right Leg: Normal (extends leg 30 degrees for 5 seconds without drift) Limb Ataxia: No ataxia Sensory(Use pinprick test arms,legs,trunk,face/side to side): Normal Best language (Describe picture, name items, read sentences): No Aphasia Dysarthria (read several words): Normal articulation Extinction and Inattention: No abnormality - Total Score NIH Stroke Scale Score: 0 Past History - Past Medical History Allergies/Adverse Reactions: Allergies Allergy/AdvReac Type Severity Reaction Status Date / Time No Known Allergies Allergy Verified 04/13/18 16:58 Home Medications: Ambulatory Orders Gabapentin 300 mg PO TID 30 Days #90 capsule 06/13/18 COPD: No Dialysis: No Hypercholesterolemia: No Thyroid Disease: No Other medical history: H.PYLORI - Surgical History Abdominal Surgery: Yes (gastric sleeve 04/07/2018) Gastric Stapling: No GI Surgery: Yes (Gastric sleeve) - Immunization History Immunization Up to Date: Yes - Suicide/Smoking/Psychosocial Hx Smoking Status: Yes Smoking History: Former smoker Have you smoked in the past 12 months: No Number of Cigarettes Smoked Daily: 1 If you are a former smoker, when did you quit?: 01/2018 Information on smoking cessation initiated: No Hx Alcohol Use: No Drug/Substance Use Hx: No Substance Use Type: None Hx Substance Use Treatment: No Review of Systems - Review of Systems Able to Perform ROS?: Yes Comments:: GENERAL/CONSTITUTIONAL: No fever or chills. No weakness HEAD, EYES, EARS, NOSE AND THROAT: No change in vision. No ear pain or discharge. No sore throat CARDIOVASCULAR: No shortness of breath RESPIRATORY: Denies cough, hemoptysis GASTROINTESTINAL: No nausea, vomiting, diarrhea or constipation GENITOURINARY: No dysuria, frequency, or change in urination MUSCULOSKELETAL: No joint or muscle swelling or pain. No neck or back pain SKIN: No rash NEUROLOGIC: No headache, vertigo, loss of consciousness, or change in strength/ sensation ENDOCRINE: No increased thirst. No abnormal weight change HEMATOLOGIC/LYMPHATIC: No anemia, easy bleeding, or history of blood clots ALLERGIC/IMMUNOLOGIC: No hives or skin allergy 06/13/18 19:17 Is the patient limited Estonian proficient: No *Physical Exam - Vital Signs Last Vital Signs Temp Pulse Resp BP Pulse Ox 98.0 F 56 L 18 127/70 98 06/13/18 18:24 06/13/18 18:24 06/13/18 18:24 06/13/18 18:24 06/13/18 18:24 - Physical Exam Comments: GENERAL: Awake, alert, and fully oriented, in no acute distress HEAD: No signs of trauma, normocephalic, atraumatic EYES: PERRLA, EOMI, sclera anicteric, conjunctiva clear ENT: Hearing grossly normal, nares patent, oropharynx clear without exudates LUNGS: No distress, speaks full sentences, clear to auscultation bilaterally HEART: Sinus bradycardia, normal S1 and S2, no murmurs appreciated, peripheral pulses normal and equal bilaterally ABDOMEN: Soft, nontender, normoactive bowel sounds. No guarding, no rebound EXTREMITIES : Normal inspection, Normal range of motion, no edema. No clubbing or cyanosis NEUROLOGICAL: Cranial nerves II through XII grossly intact. Normal speech, normal gait, no focal sensorimotor deficits SKIN: Warm, Dry, normal turgor, no rashes or lesions noted 06/13/18 19:22 Moderate Sedation - Procedure Monitoring Vital Signs: Procedure Monitoring Vital Signs Temperature 98.0 F 06/13/18 18:24 Pulse Rate 56 L 06/13/18 18:24 Respiratory Rate 18 06/13/18 18:24 Blood Pressure 127/70 06/13/18 18:24 O2 Sat by Pulse Oximetry (%) 98 06/13/18 18:24 ED Treatment Course - LABORATORY CBC & Chemistry Diagram: 06/13/18 19:00 06/13/18 19:00 - RADIOLOGY Radiology Studies Ordered: Category Date Time Status CHEST X-RAY PORTABLE* [RAD] Stat Radiology 06/13/18 18:43 Ordered Medical Decision Making - Medical Decision Making The patient is a 43F w/ a history of reported TIA and gastric sleeve who presents for evaluation of L-sided chest pain w/ radiation to her left arm Ddx: acs, PNA, PNX, MSK, considered vascular ED Course CMP, CBC, cardiac enzymes, UA, Upreg ECG CXR ASA 81mg PO to chew once 06/13/18 19:24 No leukocytosis No anemia 06/13/18 19:58 Reported to attending that she had cognitive deficits at time of onset of symptoms, including L eye tingling/numbness which has since resolved. She also reports difficulty with numbers/computations during her initial symptoms occurrence. Reports is resolved now. Chart review: history of Sjogren Syndrome, migraines 06/13/18 20:18 NIHSS 0 -Will defer CT scan at this time Spoke w/ Dr. Maria who is familiar with the patient. After discussion, will prescribe gabapentin 300mg PO TID. Pt to f/u with him this Wednesday06/13/18 20:49 Rx for gabapentin sent to pt's pharmacy Plan for repeat Trop I, if neg, plan for D/C w/ neuro f/u Will also give rheum f/u or Sjogren's Syndrome 06/13/18 20:51 CXR w/o evidence of PNA, PNX, or acute pathology 06/13/18 21:01 2nd Trop I neg Plan for D/C w/ PCP, neuro, and rheum f/u Discharge instructions and return precautions given Patient reports no symptoms at this time Patient in agreement with plan and verbalizes understanding of instructions Dispo: home 06/13/18 22:43 *DC/Admit/Observation/Transfer Diagnosis at time of Disposition: TIA (transient ischemic attack) Chest pain Qualifiers: Chest pain type: unspecified Qualified Code(s): R07.9 - Chest pain, unspecified Sjogrens syndrome Qualifiers: Sjogren's organ involvement: unspecified organ involvement Qualified Code(s): M35.00 - Sicca syndrome, unspecified - Discharge Dispostion Disposition: HOME Condition at time of disposition: Stable Decision to Admit order: No - Prescriptions Prescriptions: Gabapentin 300 mg PO TID 30 Days #90 capsule - Referrals Referrals: Roselia Pinzon [Other] - Call tomorrow (Rheumatology) Sahara Cisneros MD [Primary Care Provider] - Jolly Maria MD [Staff Physician] - Call tomorrow Krishna Sen MD [Staff Physician] - Gail Leung MD [Non Staff, Medical] - Gonzales Low MD [Staff Physician] - - Patient Instructions Printed Discharge Instructions: Sjogren's Syndrome Additional Instructions: You were seen in the Emergency Department for transient ischemic attack-like symptoms. Please review the handout provided at discharge. Maintain follow up with Neurology this Wednesday. A prescription for Gabapentin 300mg by mouth three times daily was sent to your pharmacy, take as directed. Return to th Emergency Department if you develop fevers/chills, worsening symptoms, chest pain, blurry vision, numbness/tingling, or any new/concerning symptoms. - Post Discharge Activity
[2018-06-13 19:45] LABS: HEMOGLOBIN 13.1 GM/dL (10.7-15.3); MCH 28.9 pg (25.7-33.7); MCHC 34.5 g/dl (32.0-36.0); MEAN CELL VOLUME 83.8 fl (80-96); MEAN PLT VOLUME 9.3 fl (7.5-11.1); PLATELET COUNT 359 K/MM3 (134-434); RBC 4.53 M/mm3 (3.60-5.2)
[2018-06-13 20:00] LABS: URINE APPEARANCE SLCLOUDY; URINE BILIRUBIN NEGATIVE (<2.0 mg/dL); URINE COLOR YELLOW; URINE GLUCOSE (UA) NEGATIVE (NEGATIVE); URINE KETONE 2+ (NEGATIVE); URINE LEUK ESTERASE TRACE (NEGATIVE); URINE NITRITE NEGATIVE (NEGATIVE); URINE PROTEIN NEGATIVE (NEGATIVE); URINE UROBILINOGEN NEGATIVE mg/dL (0.2-1.0)
--- NOTE | 2018-06-13 20:01 | PDOC ---
Attending Attestation - HPI HPI: 06/13/18 20:18 The patient is a 43 year old female with a past medical history of TIA and sjogren's syndrome here today for evaluation of chest pain. The patient reports that her pain began 4 hours ago and describes it as a pressure which radiated to her left scapula and left arm. She notes associated left facial heaviness and notes strange speech and inability to understand numbers. She reports never having an episode like this before and notes that her chest pain has stopped but she still feels left arm heaviness. Patient denies headache, lightheadedness. Denies fever, chills. Denies chest pain, shortness of breath. Denies nausea, vomiting, diarrhea, abdominal pain. Denies lower extremity edema. Denies urinary symptoms. Denies neurologic symptoms. Denies travel or suspicious food intake. Allergies: NKA Social history: Denies alcohol, and drug use. Quit smoking January 2018 ( previously smoked 3 times a week for approximately 20 years) Surgical history: gastric sleeve (04/2018) PCP: Sahara Cisneros - Physicial Exam PE: 06/13/18 20:18 GENERAL: Well developed, well nourished. Awake and alert. No acute distress. HEENT: Normocephalic, atraumatic. PERRLA, EOMI. No conjunctival pallor. Sclera are non- icteric. Moist mucous membranes. Oropharynx is clear. NECK: Supple. Full ROM. No JVD. Carotid pulses 2+ and symmetric, without bruits. No thyromegaly. No lymphadenopathy. CARDIOVASCULAR: Regular rate and rhythm. No murmurs, rubs, or gallops. Distal pulses are 2+ and symmetric. PULMONARY: No evidence of respiratory distress. Lungs clear to auscultation bilaterally. No wheezing, rales or rhonchi. ABDOMINAL: Soft. Non-tender. Non-distended. No rebound or guarding. No organomegaly. Normoactive bowel sounds. MUSCULOSKELETAL Normal range of motion at all joints. No bony deformities or tenderness. No CVA tenderness. EXTREMITIES: No cyanosis. No clubbing. No edema. No calf tenderness. SKIN: Warm and dry. Normal capillary refill. No rashes. No jaundice. NEUROLOGICAL: Alert, awake, appropriate. Cranial nerves 2-12 intact. No deficits to light touch and temperature in face, upper extremities and lower extremities. No motor deficits in the in face, upper extremities and lower extremities. Normoreflexic in the upper and lower extremities. Normal speech. Toes are down- going bilaterally. Gait is normal without ataxia. PSYCHIATRIC: Cooperative. Good eye contact. Appropriate mood and affect. <Vinny Michaud - Last Filed: 06/13/18 20:21> - Resident Resident Name: Grey Zapata - ED Attending Attestation I have performed the following: I have examined & evaluated the patient, The case was reviewed & discussed with the resident, I agree w/resident's findings & plan, Exceptions are as noted - Medical Decision Making 06/13/18 21:18 43 yo with h/o obesity,Sjrogren's syndrome had chest pain that was intermittent earlier today -she also had some left arm tingling that was similar to her experience in April when she was admitted for neurology work up. At that time she had a negative ct scan brain,carotid US and cervical MRI that were essentially negative -at discharge previously she was told to follow up with rheumatology 06/13/18 23:04 Dr Maria was contacted and she will follow up with him as an outpt -2 sets of negative troponins and normal ekg revealing bradycardia @ 56 bpm pt discharged home <Henrietta Nelson - Last Filed: 06/13/18 23:06>
[2018-06-13 20:04] LABS: EPI CELLS FEW /HPF (FEW); URINE BACTERIA RARE /hpf (NONE SEEN); URINE MUCUS RARE
[2018-06-13 20:10] LABS: ALBUMIN 3.8 g/dl (3.4-5.0); ALK PHOS 103 U/L (45-117); ANION GAP 6 MMOL/L (8-16); BILIRUBIN,TOTAL 0.4 mg/dL (0.2-1); BLOOD UREA NITROGEN 9 mg/dL (7-18); CALCIUM 8.8 mg/dL (8.5-10.1); CHLORIDE 100 mmol/L (98-107); CO2 31 mmol/L (21-32); CREATININE 0.5 mg/dL (0.55-1.3); GLUCOSE,RANDOM 87 mg/dL (74-106); POTASSIUM 3.9 mmol/L (3.5-5.1); SGOT/AST 17 U/L (15-37); SGPT/ALT 30 U/L (13-61); SODIUM 137 mmol/L (136-145); TOT PROT 7.5 g/dl (6.4-8.2)
--- NOTE | 2018-06-14 12:58 | EKG ---
Test Reason : Blood Pressure : / mmHG Vent. Rate : 056 BPM Atrial Rate : 056 BPM P-R Int : 132 ms QRS Dur : 082 ms QT Int : 422 ms P-R-T Axes : 041 040 040 degrees QTc Int : 407 ms SINUS BRADYCARDIA OTHERWISE NORMAL ECG WHEN COMPARED WITH ECG OF 21-APR-2018 21:07, NO SIGNIFICANT CHANGE WAS FOUND Confirmed by Timothy Baltazar ([id number]) on 06/14/2018 12:57:47 PM Referred By: Confirmed By:Timothy Baltazar
== END 2018-06-13 23:11 | disposition home or self-care (01) ==
LOC: JER 18:19
DX: R07.9 Chest pain, unspecified (principal); M35.00 Sjogren syndrome, unspecified; G45.9 Transient cerebral ischemic attack, unspecified
CPT/HCPCS: 36415; 71045-TC-FY; 80053; 81003; 81015; 82550; 84484; 84703; 85027; 93005; 93010; 99285-25

== ENCOUNTER 2019-03-06 11:24 | Emergency (ER) | payer OTHER ==
[2019-03-06 11:34] VITALS: BMI 27.8
[2019-03-06] MEDS ORDERED: SODIUM CHLORIDE 1,000 ML IV STA ×2 (12:42→12:43)
--- NOTE | 2019-03-06 13:14 | PDOC ---
History of Present Illness - General Chief Complaint: Lightheaded Stated Complaint: LIGHTHEADEDNESS Time Seen by Provider: 03/06/19 12:10 History Source: Patient Exam Limitations: No Limitations - History of Present Illness Initial Comments: 03/06/19 12:16 44-year-old female with history of gastric sleeve April 2018 presents to ED with intermittent lightheadedness for the past week associated with nausea and mild shortness of breath with exertion. Patient states symptoms are worsened with standing and movement. Patient denies history of vertical, thyroid disorder , urinary complaints, diarrhea, recent travel recent illness. Timing/Duration: 1 week Severity: mild Associated Symptoms: reports: malaise, shortness of breath, weakness Past History - Travel Traveled outside of the country in the last 30 days: No Close contact w/someone who was outside of country & ill: No - Past Medical History Allergies/Adverse Reactions: Allergies Allergy/AdvReac Type Severity Reaction Status Date / Time No Known Allergies Allergy Verified 03/06/19 11:31 Home Medications: Ambulatory Orders NK [No Known Home Medication] 03/06/19 COPD: No Dialysis: No Hypercholesterolemia: No Thyroid Disease: No - Surgical History Abdominal Surgery: Yes (gastric sleeve 04/07/2018) Gastric Stapling: No GI Surgery: Yes (Gastric sleeve) - Immunization History Immunization Up to Date: Yes - Suicide/Smoking/Psychosocial Hx Smoking Status: Yes Smoking History: Current every day smoker Have you smoked in the past 12 months: No Number of Cigarettes Smoked Daily: 1 If you are a former smoker, when did you quit?: 01/2018 Information on smoking cessation initiated: No Hx Alcohol Use: No Drug/Substance Use Hx: Yes ([facility]) Substance Use Type: None Hx Substance Use Treatment: No Patient Lives Alone: No Lives with/in: spouse/SO Review of Systems - Review of Systems Able to Perform ROS?: Yes Constitutional: Yes: Weakness HEENTM: No: Symptoms Reported Respiratory: Yes: SOB with Exertion Cardiac (ROS): No: Symptoms Reported ABD/GI: Yes: Symptoms Reported, Nausea ( intermittent mild ). No: Constipated, Diarrhea, Poor Appetite, Poor Fluid Intake : No: Symptoms Reported Musculoskeletal: No: Symptoms Reported Integumentary: No: Symptoms Reported Neurological: Yes: Dizziness (worsened with standing) Endocrine: No: Symptoms Reported Hematologic/Lymphatic: No: Symptoms Reported *Physical Exam - Vital Signs Last Vital Signs Temp Pulse Resp BP Pulse Ox 98.0 F 47 L 18 117/80 100 03/06/19 11:31 03/06/19 12:57 03/06/19 11:31 03/06/19 12:57 03/06/19 11:31 - Physical Exam General Appearance: Yes: Nourished, Appropriately Dressed. No: Apparent Distress HEENT: positive: EOMI, STEF, TMs Normal, Pharynx Normal. negative: Pale Conjunctivae Neck: positive: Normal Thyroid, Supple Respiratory/Chest: positive: Lungs Clear, Normal Breath Sounds. negative: Respiratory Distress, Accessory Muscle Use Cardiovascular: positive: Regular Rhythm, Regular Rate. negative: Murmur Gastrointestinal/Abdominal: positive: Soft. negative: Tenderness Extremity: positive: Normal Inspection Integumentary: positive: Normal Color, Warm, Moist Neurologic: positive: Motor Strength 5/5 (ambulatory), Other (Unable to perform rader pikes test due to extreme dizziness when moving from lying to sitting) ED Treatment Course - LABORATORY CBC & Chemistry Diagram: 03/06/19 12:53 03/06/19 12:53 Medical Decision Making - Medical Decision Making 03/06/19 12:19 CC: dizziness, nausea, sob w/ exertion x 1 week, gastric sleeve 10 months ago, eats small frequent meals but states not adequate fluid intake Exam: VSS ( kian) , + dizziness with upright position changes Plan: labs, urine, d-dimer, tsh, ekg, ivf 03/06/19 17:11 Laboratory Tests 03/06/19 03/06/19 03/06/19 12:53 12:53 12:53 WBC 7.3 Hgb 13.1 Hct 38.5 Absolute Neuts (auto) 4.4 Neutrophils % 60.5 D-Dimer < 215 Sodium 138 Potassium 4.3 Chloride 104 Carbon Dioxide 31 Anion Gap 4 L BUN 10.8 Creatinine 0.5 L Est GFR (CKD-EPI)AfAm 138.36 Est GFR (CKD-EPI)NonAf 119.38 Random Glucose 84 Calcium 9.2 Magnesium 2.2 Total Bilirubin 0.3 AST 10 L ALT 13 Alkaline Phosphatase 87 Creatine Kinase Troponin I Total Protein 6.8 Albumin 3.6 TSH 1.36 Urine pH Urine Ketones Urine HCG, Qual 03/06/19 03/06/19 03/06/19 12:53 12:53 12:53 WBC Hgb Hct Absolute Neuts (auto) Neutrophils % D-Dimer Sodium Potassium Chloride Carbon Dioxide Anion Gap BUN Creatinine Est GFR (CKD-EPI)AfAm Est GFR (CKD-EPI)NonAf Random Glucose Calcium Magnesium Total Bilirubin AST ALT Alkaline Phosphatase Creatine Kinase 35 Troponin I < 0.02 Total Protein Albumin TSH Urine pH 8.5 H D Urine Ketones Negative Urine HCG, Qual Negative 03/06/19 17:12 Patient states feeling better after resting and receiving meclizine. Patient has a neurologist Dr. Denson who she can follow-up with. *DC/Admit/Observation/Transfer Diagnosis at time of Disposition: Headache, Dizziness - Discharge Dispostion Disposition: HOME Condition at time of disposition: Improved - Referrals Referrals: Sahara Cisneros MD [Primary Care Provider] - Jolly Maria MD [Staff Physician] - - Patient Instructions Printed Discharge Instructions: DI for Headache, DI for Dizziness-Nonvertigo Additional Instructions: Please follow-up with neurologist and your primary care physician Drink plenty of fluids and get up from lying position and increments to avoid the dizziness. - Post Discharge Activity
[2019-03-06 13:17] LABS: BASO % 0.3 % (0-2.0); HEMATOCRIT 38.5 % (32.4-45.2); HEMOGLOBIN 13.1 GM/dL (10.7-15.3); LYMPH % 29.8 % (8-40); MCH 29.2 pg (25.7-33.7); MEAN CELL VOLUME 85.9 fl (80-96); MEAN PLT VOLUME 9.3 fl (7.5-11.1); MONO % 7.4 % (3.8-10.2); NEUT % 60.5 % (42.8-82.8); PLATELET COUNT 311 K/MM3 (134-434); RBC 4.48 M/mm3 (3.60-5.2); RDW 13.1 % (11.6-15.6); WHITE BLOOD COUNT 7.3 K/mm3 (4.0-10.0)
[2019-03-06 13:49] LABS: ALBUMIN 3.6 g/dl (3.4-5.0); BILIRUBIN,TOTAL 0.3 mg/dL (0.2-1); BLOOD UREA NITROGEN 10.8 mg/dL (7-18); CALCIUM 9.2 mg/dL (8.5-10.1); CREATININE 0.5 mg/dL (0.55-1.3); POTASSIUM 4.3 mmol/L (3.5-5.1); TOT PROT 6.8 g/dl (6.4-8.2)
[2019-03-06 13:53] LABS: PH,URINE 8.5 (5.0-8.0); URINE APPEARANCE CLEAR; URINE BILIRUBIN NEGATIVE (NEGATIVE); URINE COLOR YELLOW; URINE GLUCOSE (UA) NEGATIVE (NEGATIVE); URINE KETONE NEGATIVE (NEGATIVE); URINE LEUK ESTERASE NEGATIVE (NEGATIVE); URINE NITRITE NEGATIVE (NEGATIVE); URINE PROTEIN NEGATIVE (NEGATIVE); URINE UROBILINOGEN 0.2 mg/dL (0.2-1.0)
[2019-03-06 14:25] LABS: MAGNESIUM 2.2 mg/dL (1.8-2.4)
[2019-03-06] MEDS ORDERED: MECLIZINE HCL 25 MG TABLET (FP) PO ONE (15:18)
[2019-03-06] MEDS ORDERED: MECLIZINE HCL 25 MG TABLET (FP) ONE (15:21)
[2019-03-06 17:43] VITALS: BP 110/76; PULSE 88; TEMP 98.6
--- NOTE | 2019-03-07 12:44 | EKG ---
Test Reason : Blood Pressure : / mmHG Vent. Rate : 050 BPM Atrial Rate : 050 BPM P-R Int : 126 ms QRS Dur : 084 ms QT Int : 436 ms P-R-T Axes : 036 040 037 degrees QTc Int : 397 ms SINUS BRADYCARDIA OTHERWISE NORMAL ECG WHEN COMPARED WITH ECG OF 13-JUN-2018 18:28, NO SIGNIFICANT CHANGE WAS FOUND Confirmed by John Green MD ([id number]) on 03/07/2019 12:44:34 PM Referred By: Confirmed By:John Green MD
== END 2019-03-06 17:43 | disposition home or self-care (01) ==
LOC: JER 11:24
PROC: 3E0337Z Introduction of Electrolytic and Water Balance Substance into Peripheral Vein, Percutaneous Approach (ICD-10-PCS; principal; 2019-03-06)
DX: R51 Headache (principal); R42 Dizziness and giddiness; Z98.84 Bariatric surgery status
CPT/HCPCS: 36415; 80053; 81003; 82550; 83735; 84443; 84484; 84703; 85025; 85379; 87086; 93005; 93010; 99284-25; J7030

== ENCOUNTER 2019-08-08 08:54 | Day surgery (SDC) | payer OTHER ==
[2019-08-07 09:38] VITALS: BMI 25.6
--- NOTE | 2019-08-08 07:54 | HP ---
History & Physical Update - Physical Physical: No Change - Assessment Assessment: No Change - Plan Plan: No Change (H&P reviwed , no changes . for hysteroscopy , D&C)
[2019-08-08] MEDS ORDERED: MIDAZOLAM HCL 2 MG/2 ML SINGLE DOSE VIAL ONE (11:02)
[2019-08-08] MEDS ORDERED: DEXAMETHASONE SOD PHOSPHATE 4 MG/1 ML VIAL ONE (11:03)
[2019-08-08] MEDS ORDERED: KETOROLAC TROMETHAMINE 30 MG/1 ML VIAL ONE (11:03)
[2019-08-08] MEDS ORDERED: LIDOCAINE HCL/PF 2% SDV 5ML VIAL ONE (11:03)
[2019-08-08] MEDS ORDERED: PROPOFOL 20 ML ONE ×2 (11:03)
[2019-08-08] MEDS ORDERED: SUCCINYLCHOLINE CHLORIDE 200 MG/10 ML SYRINGE ONE (11:04)
[2019-08-08] MEDS ORDERED: GLYCOPYRROLATE 0.2 MG/1 ML VIAL ONE (11:18)
[2019-08-08] MEDS ORDERED: IBUPROFEN 600 MG TABLET (FP) PO PRN (12:02)
[2019-08-08] MEDS ORDERED: IBUPROFEN 800 MG/8 ML IJ IVPB PRN (12:02)
[2019-08-08] MEDS ORDERED: ONDANSETRON 4 MG/2 ML VIAL IVPUSH PRN ×2 (12:02→12:19)
[2019-08-08] MEDS ORDERED: oxyCODONE HCL 5 MG TABLET PO PRN ×2 (12:02→12:19)
[2019-08-08] MEDS ORDERED: NALOXONE HCL 0.4 MG/ML VIAL ONE (12:05)
--- NOTE | 2019-08-08 12:06 | OP ---
Operative Note - Note: Operative Date: 08/08/19 Pre-Operative Diagnosis: menorrhagia , EM polyp Operation: hysteroscopy ,Endocervical and EM polypectomy Findings: ECand EM polyp, irregular EM Surgeon: Zaire Marcum Anesthesiologist/EMPLOYEE DEVELOPMENT SPECIALIST: Briana Agustin Anesthesia: General Estimated Blood Loss (mls): 50 Drains & Tubes with Location: none Blood Volume Replaced (mls): 0 Operative Report Dictated: Yes
[2019-08-08] MEDS ORDERED: ELECTROLYTE-148 SOLN 1,000 ML IV SCH (12:15)
[2019-08-08] MEDS ORDERED: LACTATED RINGERS SOLUTION 1,000 ML IV SCH (12:30)
[2019-08-08 14:46] VITALS: BP 120/60; PULSE 47; TEMP 98.3
--- NOTE | 2019-08-10 16:12 | PATH ---
Surgical Pathology Report Patient Name: MICHELLE CORONEL [facility]. Rec. #: [id number] /Age/Gender: 1975 (Age: 44) / F Account: [id number] Location: [facility] [place] SURGICAL Taken: 08/08/2019 Received: 08/09/2019 Reported: 08/10/2019 Physicians: Zaire Marcum M.D. Specimen(s) Received A: ENDOCERVICAL POLYP B: ENDOMETRIAL POLYP C: ENDOMETRIAL CURETTINGS Clinical History Endometrial polyp Final Diagnosis A. ENDOCERVICAL POLYP, EXCISION: FRAGMENTS OF ENDOCERVICAL POLYP. SEPARATE ENDOCERVICAL TISSUE WITH NO SIGNIFICANT PATHOLOGIC CHANGE. B. ENDOMETRIAL POLYP, EXCISION: FRAGMENTS OF ENDOMETRIAL POLYP. SEPARATE FRAGMENTS OF SECRETORY TYPE ENDOMETRIUM. C. ENDOMETRIAL CURETTINGS: FRAGMENTS OF SECRETORY TYPE ENDOMETRIUM AND UNREMARKABLE ENDOCERVICAL TISSUE. Electronically Signed Diane Faria M.D. Gross Description A. Received in formalin labeled "endocervical polyp," is a 2.0 x 1.5 x 0.3 cm aggregate of max soft tissue fragments admixed with blood-tinged mucous. The formalin is filtered and the specimen is entirely submitted in one cassette. B. Received in formalin labeled "endometrial polyp," is a 1.8 x 1.4 x 0.3 cm aggregate of max-brown soft tissue fragments. The formalin is filtered and the specimen is entirely submitted in one cassette. C. Received in formalin labeled "endometrial curettings," is a 3.7 x 2.6 x 0.3 cm aggregate of max-brown soft tissue fragments. The formalin is filtered and the specimen is entirely submitted in 2 cassettes. 08/09/2019 [facility]08/09/2019
--- NOTE | 2019-08-15 16:06 | OP ---
DATE OF OPERATION: 08/08/2019 PREOPERATIVE DIAGNOSIS: Menometrorrhagia, endometrial polyp. POSTOPERATIVE DIAGNOSIS: Menometrorrhagia, endometrial polyp. PROCEDURE: Endocervical polypectomy, endometrial polypectomy, dilation and curettage, and hysteroscopy. SURGEON: Zaire Marcum MD ANESTHESIA: General. ESTIMATED BLOOD LOSS: 25 mL. OPERATION: Patient was taken to the operating room. Under adequate general anesthesia in dorsal lithotomy position, examination under anesthesia revealed external genitalia to be normal. Vagina was normal. Cervix had a 1-cm endocervical polyp protruding through the os, which was grasped with a Christin clamp and removed. Uterus appeared to be slightly prominent. Adnexa, no masses were palpable. Then with a weighted speculum in the vagina, anterior lip of cervix was grasped with single-tooth tenaculum and then cervix was gradually dilated. Hysteroscope was introduced. Visualization of endocervical canal appeared to be normal. Endometrium was irregular with an endometrial polyp at the fundal area of the uterus, and the rest of the endometrium appeared to be normal. Both ostia were visualized. No other abnormality was noted. Then endometrial polyp was removed and then cervix was gradually dilated with the Hegar dilator and then endometrial curetting was done. Patient tolerated procedure well. Left the OR in good condition. ZAIRE MARCUM M.D. [id number]
== END 2019-08-08 15:15 | disposition home or self-care (01) ==
LOC: JASU-SURG 08:54
PROVIDERS: ATTEND Obstetrics & Gynecology
PROC: 0UDB7ZX Extraction of Endometrium, Via Natural or Artificial Opening, Diagnostic (ICD-10-PCS; 2019-08-08)
PROC: 0UJD8ZZ Inspection of Uterus and Cervix, Via Natural or Artificial Opening Endoscopic (ICD-10-PCS; 2019-08-08)
PROC: 0UBC7ZX Excision of Cervix, Via Natural or Artificial Opening, Diagnostic (ICD-10-PCS; principal; 2019-08-08 11:00)
PROC: 0UB97ZX Excision of Uterus, Via Natural or Artificial Opening, Diagnostic (ICD-10-PCS; 2019-08-08 11:00)
DX: N92.1 Excessive and frequent menstruation with irregular cycle (principal); N84.0 Polyp of corpus uteri; N84.1 Polyp of cervix uteri
CPT/HCPCS: 84703; 94760

== ENCOUNTER 2020-11-21 12:02 | Emergency (ER) | payer OTHER ==
[2020-11-21 12:09] VITALS: BP 119/60; PULSE 55; TEMP 98.5; BMI 25.6
[2020-11-21] MEDS ORDERED: KETOROLAC TROMETHAMINE 30 MG/1 ML VIAL IM ONE (12:50)
[2020-11-21] MEDS ORDERED: KETOROLAC TROMETHAMINE 30 MG/1 ML VIAL ONE (12:56)
== END 2020-11-21 15:06 | disposition home or self-care (01) ==
LOC: JER 12:02 → JERFT 12:02
PROC: 3E0233Z Introduction of Anti-inflammatory into Muscle, Percutaneous Approach (ICD-10-PCS; principal; 2020-11-21)
DX: M25.562 Pain in left knee (principal)
CPT/HCPCS: 73562-TC-LT-FY; 99284-25

== ENCOUNTER 2023-01-25 14:48 | Emergency (ER) | payer SELFPAY ==
[2023-01-25 14:54] VITALS: BP 158/78; PULSE 63; RESP 18; TEMP 98.2; BMI 25.2
[2023-01-25] MEDS ORDERED: SODIUM CHLORIDE 0.9% 500 ML INFUS.BAG IV ONE (15:56)
[2023-01-25 16:32] LABS: BASO % 0.6 % (0-2.0); EOS % 1.8 % (0-4.5); HEMATOCRIT 35.4 % (32.4-45.2); HEMOGLOBIN 11.6 GM/dL (10.7-15.3); LYMPH % 31.4 % (8-40); MCH 26.1 pg (25.7-33.7); MCHC 32.7 g/dl (32.0-36.0); MEAN CELL VOLUME 79.8 fl (80-96); MEAN PLT VOLUME 8.4 fl (7.5-11.1); MONO % 8.5 % (3.8-10.2); NEUT % 57.7 % (42.8-82.8); PLATELET COUNT 342 10^3/uL (134-434); RBC 4.44 M/mm3 (3.60-5.2); RDW 13.3 % (11.6-15.6); WHITE BLOOD COUNT 8.1 K/mm3 (4.0-10.0)
[2023-01-25 16:33] LABS: URINE APPEARANCE CLEAR; URINE BILIRUBIN NEGATIVE (NEGATIVE); URINE COLOR YELLOW; URINE GLUCOSE (UA) NEGATIVE (NEGATIVE); URINE KETONE 1+ (NEGATIVE); URINE LEUK ESTERASE NEGATIVE (NEGATIVE); URINE NITRITE NEGATIVE (NEGATIVE); URINE PROTEIN NEGATIVE (NEGATIVE); URINE UROBILINOGEN 0.2 mg/dL (0.2-1.0)
[2023-01-25 17:05] LABS: CHLORIDE 106 mmol/L (98-107); POTASSIUM 3.8 mmol/L (3.5-5.1); SODIUM 139 mmol/L (136-145)
[2023-01-25 17:07] LABS: ALBUMIN 3.9 g/dl (3.4-5.0); ANION GAP 7 MMOL/L (8-16); CALCIUM 9.3 mg/dL (8.5-10.1); CO2 26 mmol/L (21-32); GLUCOSE,RANDOM 92 mg/dL (74-106)
[2023-01-25 17:08] LABS: BLOOD UREA NITROGEN 12.2 mg/dL (7-18)
[2023-01-25 17:10] LABS: CREATININE 0.6 mg/dL (0.55-1.3); SGOT/AST 14 U/L (15-37)
[2023-01-25 17:11] LABS: SGPT/ALT 15 U/L (13-61)
[2023-01-25 17:12] LABS: BILIRUBIN,TOTAL < 0.1 mg/dL (0.2-1); TOT PROT 7.5 g/dl (6.4-8.2)
[2023-01-25 17:13] LABS: ALK PHOS 90 U/L (45-117)
== END 2023-01-25 18:45 | disposition home or self-care (01) ==
LOC: JER 14:48
DX: R42 Dizziness and giddiness (principal); R53.83 Other fatigue; R06.02 Shortness of breath
CPT/HCPCS: 36415; 71046-TC-FY; 80053; 81003; 85025; 87086; 93005; 93010; 99285-25